=== PATIENT | female | born 1945 ===

== ENCOUNTER → 2018-12-11 | Outpatient (CLI) | payer OTHER, BC ==
[~2018-12-11] VITALS: Ht 165.1 cm; Wt 58.1 kg
[~2018-12-11] MED LIST: ASPIR 8181 MG PO; ATENOLOL 25 MG25 M1 PO; NORVASC2.5 MG PO; SYNTHROID25 MC1 PO; ULTRACET TABLET1 TAB PO; VASOTEC10 MG PO
--- NOTE | ~2018-12-11 | HPC ---
[facility] [address] [place] [address] PAIN MANAGEMENT CONSULTATION Name: CATE TRONCOSO Room #: REG KIMMY Freeman.#: [id number] Admission: 12/11/18 ������������������ Attend Phys: Joseph Medina MD Discharge: ������������������ Date of : 41 Report #: [id number] THIS REPORT FOR: //name// CC: [facility] physician/PCP FRANCINE Medina DATE OF SERVICE: 12/11/2018 CHIEF COMPLAINT: Low back pain with radiation into the left leg following an L4 distribution. The patient is a 73-year-old who has had longstanding back pain. Over the course of last year, the pain is worse and radiating now into her left buttock and into the left anterior thigh. Pain is worsened by prolonged sitting. It is relieved actually by exercise and she uses some tramadol. She describes her pain as continuous. She was unable to give me a pain score. MEDICATIONS: Levothyroxine, enalapril, amlodipine, atenolol, tramadol and baby aspirin. ALLERGIES: None. PAST MEDICAL HISTORY: Anemia, hypertension are listed as well as hypothyroidism. PAST SURGICAL HISTORY: Hysterectomy in October 1982. SOCIAL HISTORY: She is . Her is a patient of ours. She denies use of tobacco. She drinks alcohol in a social setting 2-3 times a week. She and her have sold their home in [place] and have an apartment here, spending part of the year here and a good portion in [place]. She is retired from medical office work. REVIEW OF SYSTEMS: Positive for some fatigue and night sweats, dyspnea on exertion, shortness of breath on occasion. She has occasional constipation and some nocturnal incontinence. She complains of some insomnia. PHYSICAL EXAMINATION: GENERAL: She is a very pleasant, 5 feet 5 inches, 128 pound 73-year-old. Her BMI is 21. VITAL SIGNS: Her blood pressure is 132/68, heart rate 70, respirations 14. CHEST: Clear. CARDIAC: Rhythm regular. MUSCULOSKELETAL: She moves easily from sitting to standing position. Her gait is normal without any antalgic features. Examination of the spine reveals [facility] [address] [place] [address] PAIN MANAGEMENT CONSULTATION Name: NATHALIE TRONCOSON Room #: REG LORRAINEAdria Hernandez#: [id number] Admission: 12/11/18 ������������������ Attend Phys: Joseph Medina MD Discharge: ������������������ Date of : 41 Report #: [id number] normal alignment with good range of motion. She has localized tenderness in the left buttock. Straight leg raising reproduces some pain and stretching, discomfort in the left hip and both the sitting and supine position. Deep tendon reflexes are 2+ knee and ankle bilaterally. Sensation and strength are normal. An MRI is reviewed of the lumbar spine as well as a hip x-ray. The hip shows degenerative changes with chondral thinning. No avascular necrosis or joint effusion. There are some moderate cysts within the superior acetabulum. MRI of the hip was reviewed as well as the report. There is a fairly prominent degenerative disk at L4-L5, which creates bilateral neural foraminal narrowing. There was a small spherical cyst-like structure; however, this appeared to be more medial and anterior than the typical synovial cyst. This cyst appears to create some additional left lateral recess narrowing and could be the underlying cause of her ongoing pain. IMPRESSION: I believe this is an L4 radiculopathy based upon the degenerative disk at L4-L5 and the cyst-like structure in the lateral recess. I have recommended a lumbar epidural steroid injection and we will try to follow up on her MRI imaging to see if the radiologist will comment. DESCRIPTION OF PROCEDURE: The patient was taken to fluoroscopic suite, placed prone, skin prepped with ChloraPrep. Skin anesthetized over the L4-L5 interspace. With some effort, I tried to identify the ligamentum flavum and epidural space at the left L4-L5 level. I was unable to enter the epidural space. The needle was withdrawn and I performed the injection at L5-S1 using loss of resistance technique. No blood or CSF was aspirated. Omnipaque 1 mL was injected with excellent spread along the lateral recess and into the epidural space. It was then followed by 5 mL of 0.5% lidocaine mixed with 80 mg of triamcinolone. She tolerated the procedure well. Pain score was 0 at discharge and a followup visit is planned as needed. ��������������������������������������������� ���������������������������������������� By: ��������������������������������������������� [id number] [id number] Joseph Medina MD /nt
[2018-12-11 14:55] VITALS: BP 132/68
--- NOTE | 2018-12-11 15:41 | NUR ---
Pain Clinic Assessment: 1. History of Osteoarthritis: History of Rheumatoid Arthritis: 2. Height: 5 ft. 5 in. 165.1 cm. Weight: 128.0 lb. oz. 58.060 kg. Patient's BMI: 21.3 3. Vital Signs: BP: 132/68 Pulse: 70 Resp: 14 Temp: 02 Sat: 100 ECG Mon: 4. Pain Intensity: 5. Fall Risk: Dizziness: N Needs help standing or walking: N Fallen in the last 3 months: N Fall risk comments: 6. Patient on Blood Thinner: None 7. History of Hypertension: Y 8. Opioid Therapy greater than 6 weeks: Opiate Contract Signed: 9. Risk Assessment Tool Provided: 10. Functional Assessment Tool: 11. Recreational Drug Use: Never Drug Type: Tobacco Use: Never Smoker Tobacco Type: Amount or Packs/day: How Many Years: Alcohol Use: Yes Frequency: Weekly Quant: 2-3/WEEK
== END | disposition home or self-care (01) ==
LOC: PAIN 06:49
DX: M51.16 Intervertebral disc disorders with radiculopathy, lumbar region (principal); D64.9 Anemia, unspecified; I10 Essential (primary) hypertension; E03.9 Hypothyroidism, unspecified; Z98.890 Other specified postprocedural states; Z79.899 Other long term (current) drug therapy; Z79.82 Long term (current) use of aspirin

== ENCOUNTER → 2019-04-02 | Outpatient (CLI) | payer OTHER, BC ==
[~2019-04-02] VITALS: Ht 165.1 cm; Wt 58.1 kg
[~2019-04-02] MED LIST changes: +VITAMIN B122500 MCG PO
--- NOTE | ~2019-04-02 | HPC ---
[facility] [place] [address] [place] [address] PAIN MANAGEMENT CONSULTATION Name: NATHALIE TRONCOSON Room #: REG KIMMY Freeman.#: [id number] Admission: 04/02/19 ������������������ Attend Phys: Joseph Medina MD Discharge: ������������������ Date of : 41 Report #: [id number] THIS REPORT FOR: //name// CC: Vaughn Urban [facility] physician/PCP Joseph Medina DATE OF SERVICE: 04/02/2019 Followup visit for low back pain with radiculopathy. The patient returns to the Pain Clinic today for a repeat epidural injection. Her last epidural injection was performed at the level of L5-S1. She reported some decent relief. Duration of response was 1-2 months. She and her plan to return to their home in [place] in the next month or two. She is here today for further treatment. She describes her pain today as a 9/10 when severe, today as a 6/10. Pain radiates through the left leg in a radicular distribution. PHYSICAL EXAMINATION: She is 5 feet 5 inches, 128 pounds, blood pressure 154/64, heart rate 58, respirations 16. She moves independently from sitting to standing position and does not show any evidence of a fall risk. There is modest pain across the low back and positive straight leg raising bilaterally, worse on the left. She has some right-sided pain as well. X-rays have shown degenerative disk at L4-L5 and the cyst-like structure in the lateral recess. PLAN: Repeat lumbar epidural injection. I told her that I would try again today to enter through the L4-L5 interspace to the left of midline. PROCEDURE: Epidural steroid injection under fluoroscopic guidance. DESCRIPTION OF PROCEDURE: She was taken to fluoroscopic suite for treatment, placed prone, skin prepped with ChloraPrep. Skin anesthetized over the L4-L5 interspace. A 20-gauge Tuohy epidural needle advanced first attempt in the epidural space with loss of resistance technique. There was no blood or CSF aspirated. A 1 mL of Omnipaque injected. Good spread of dye observed into the epidural space. It was then followed by 3 mL of 0.5% lidocaine mixed with 80 mg of triamcinolone. She tolerated the procedure well and was observed for 45 minutes and discharged. [address] [address] PAIN MANAGEMENT CONSULTATION Name: CATE TRONCOSO Room #: REG [facility].#: [id number] Admission: 04/02/19 ������������������ Attend Phys: Joseph Medina MD Discharge: ������������������ Date of : 41 Report #: [id number] Followup visit planned as needed. ��������������������������������������������� ���������������������������������������� By: ��������������������������������������������� [id number] Joseph Medina MD /nt
[2019-04-02 09:23] VITALS: BP 154/64
--- NOTE | 2019-04-02 09:25 | NUR ---
Pain Clinic Assessment: 1. History of Osteoarthritis: NONE History of Rheumatoid Arthritis: NONE 2. Height: 5 ft. 5 in. 165.1 cm. Weight: 128.0 lb. oz. 58.060 kg. Patient's BMI: 21.3 3. Vital Signs: BP: 154/64 Pulse: 58 Resp: 16 Temp: 02 Sat: 98 ECG Mon: 4. Pain Intensity: 9-WHEN BAD, 6-TODAY 5. Fall Risk: Dizziness: N Needs help standing or walking: N Fallen in the last 3 months: N Fall risk comments: 6. Patient on Blood Thinner: None 7. History of Hypertension: Y 8. Opioid Therapy greater than 6 weeks: Opiate Contract Signed: 9. Risk Assessment Tool Provided: LOW 10. Functional Assessment Tool: 11. Recreational Drug Use: Never Drug Type: Tobacco Use: Never Smoker Tobacco Type: Amount or Packs/day: How Many Years: Alcohol Use: Yes Frequency: Monthly Quant: 3-4 TIMES A MONTH
== END | disposition home or self-care (01) ==
LOC: PAIN 06:48
DX: M54.16 Radiculopathy, lumbar region (principal); M54.5 Low back pain; Z98.890 Other specified postprocedural states; Z79.899 Other long term (current) drug therapy

== ENCOUNTER → 2019-04-26 | Outpatient (CLI) | payer OTHER, BC ==
[~2019-04-26] VITALS: Ht 165.1 cm; Wt 58.4 kg
--- NOTE | ~2019-04-26 | HPC ---
[facility] [place] [address] PAIN MANAGEMENT CONSULTATION Name: CATE TRONCOSO Room #: REG KIMMY Freeman.#: [id number] Admission: 04/26/19 Attend Phys: Joseph Medina MD Discharge: Date of : 41 Report #: [id number] THIS REPORT FOR: //name// CC: [facility] physician/PCP Aleja Medina DATE OF SERVICE: 04/26/2019 Followup visit for lumbar radiculopathy. The patient returns to pain clinic today for a repeat injection. She has had 2 prior injections, the first very successful for about a month and a half. The second one not so helpful with dexamethasone. Given her difference in response to the 2 different medications, I have suggested that we repeat the injection 1 more time before she leaves for [place]. She can continue to remain active. Exercise is important in the treatment of this condition. PQRS REVIEW: 1. History of osteoarthritis and spondylosis of the lumbar spine. There is also degenerative disk disease and cyst-like structure in the lateral recess. 2. 5 feet 5 inches, 128 pounds, BMI of 21.4. 3. Vital signs: Blood pressure 130/56, heart rate 52, respirations 16, O2 sat 100. 4. Pain intensity 5/10. 5. She is not a fall risk. 6. No blood thinners. 7. History of hypertension, treated by Dr. Urban. All medications reviewed and reconciled. She is currently taking aspirin, tramadol, atenolol, amlodipine, enalapril and levothyroxine. 8. She is on no opioid medications and does not wish to take them at this time. 9. Risk assessment score is low on the ORT under 3. 10. Functional assessment score also suggests good management of chronic pain with a score of 14/70. 11. She denies use of tobacco, drinks alcohol in a social setting. PHYSICAL EXAMINATION: She moves independently from sitting to standing position. She ambulates without antalgic features. Examination of the spine reveals some tenderness across the lumbosacral segment. Pain with flexion and extension, both reproduce some mild pain. She complains of clicking sensation of her left hip, but rotational movements of the hip performed do not elicit crepitus. She has tenderness in the gluteal muscles. MRI is reviewed, which shows evidence of multi-degenerative spondylosis, canal stenosis, moderate bilateral foraminal narrowing at L4-L5. [address] [address] PAIN MANAGEMENT CONSULTATION Name: CATE TRONCOSO Room #: REG CLI Linda#: [id number] Admission: 04/26/19 Attend Phys: Joseph Medina MD Discharge: Date of : 41 Report #: [id number] She also has an MRI of the hip, which I reviewed today from 2018. It shows degenerative changes with chondral thinning and a cyst in the superior acetabulum. There is evidence for tendinosis and tendinitis at the gluteus minimus insertion on the greater trochanter. IMPRESSION: I think she has more than 1 pain generator here, including both some lumbar radiculopathy as well as arthropathy of the left hip. We discussed management of this with exercise, ongoing therapy and nonsteroidal anti-inflammatory trial, which I discussed at great length, including potential risks and benefits. Risks include GI, renal and cardiac and effects on hypertension. PROCEDURE: Epidural steroid injection, L5-S1, under fluoroscopic guidance, left paramedian. DESCRIPTION OF PROCEDURE: The patient was taken to fluoroscopic suite, placed prone, skin prepped with ChloraPrep. Skin anesthetized over the L5-S1 interspace. A 20-gauge Tuohy epidural needle was advanced on first attempt in the epidural space with loss of resistance. There was no blood nor CSF aspirated. A 1 mL of Omnipaque was injected and excellent epidurogram was achieved. It was then followed by 3 mL of 0.5% lidocaine with 80 mg of triamcinolone. She tolerated the procedure well. She was observed for 45 minutes. Pain score was 2 at discharge. Follow up as needed after they return from [place]. By: [id number] Joseph Medina MD /nt
[2019-04-26 10:18] VITALS: BP 130/56
--- NOTE | 2019-04-26 10:27 | NUR ---
Pain Clinic Assessment: 1. History of Osteoarthritis: BACK History of Rheumatoid Arthritis: NONE 2. Height: 5 ft. 5 in. 165.1 cm. Weight: 128.8 lb. oz. 58.423 kg. Patient's BMI: 21.4 3. Vital Signs: BP: 130/56 Pulse: 52 Resp: 16 Temp: 02 Sat: 100 ECG Mon: 4. Pain Intensity: 5 5. Fall Risk: Dizziness: N Needs help standing or walking: N Fallen in the last 3 months: N Fall risk comments: 6. Patient on Blood Thinner: None 7. History of Hypertension: Y 8. Opioid Therapy greater than 6 weeks: N Opiate Contract Signed: 9. Risk Assessment Tool Provided: LOW 10. Functional Assessment Tool: 11. Recreational Drug Use: Never Drug Type: Tobacco Use: Never Smoker Tobacco Type: Amount or Packs/day: How Many Years: Alcohol Use: Yes Frequency: Quant:
== END | disposition home or self-care (01) ==
LOC: PAIN 06:55
DX: M54.16 Radiculopathy, lumbar region (principal); M48.061 Spinal stenosis, lumbar region without neurogenic claudication; G89.29 Other chronic pain; Z98.890 Other specified postprocedural states; I10 Essential (primary) hypertension; Z79.82 Long term (current) use of aspirin; Z79.899 Other long term (current) drug therapy

== ENCOUNTER → 2020-04-17 | Outpatient (CLI) | payer OTHER, BC ==
[~2020-04-17] VITALS: Ht 165.1 cm; Wt 56.8 kg
[~2020-04-17] MED LIST changes: +BENADRYL ALLERG25 MG PO; +BENADRYL25 MG PO; +LIPITOR10 MG PO
--- NOTE | ~2020-04-17 | HPC ---
[facility] [address] PAIN MANAGEMENT CONSULTATION Name: CATE TRONCOSO Room #: YOUNG DesaiTeresitaLinda.#: [id number] Admission: 04/17/20 Attend Phys: Joseph Medina MD Discharge: Date of : 41 Report #: [id number] CC: Shanti Medina DATE OF SERVICE: 04/17/2020 Followup visit for lumbar radiculopathy secondary to spinal stenosis. The patient returns to pain clinic today for a repeat epidural injection. She has had an unfavorable response to injections. Pain is mostly at the level of L4-L5 where she has mild bilateral foraminal narrowing and she also has central canal narrowing at L2-L3 and L3-L4. Pain is bilateral, perhaps worse on the left than the right. PQRS: Positive for some right shoulder pain secondary to dislocation, which is not showing signs of arthropathy. She has some spondylosis of the spine. BMI is 20.8, blood pressure 130/56, heart rate 58, respirations 14, O2 sat 100, pain intensity 5. She has not fallen. She is on no blood thinners, but is treated for hypertension by her primary care physician. She does not take opioids. Her opioid risk tool assessment is low. Functional assessment score 31. She denies tobacco, drinks alcohol socially 1 glass of wine on special occasions. IMPRESSION: Lumbar radiculopathy. RECOMMENDATION: Repeat epidural injection L4-L5 under fluoroscopic guidance. DESCRIPTION OF PROCEDURE: After informed consent, she was taken to the fluoroscopic suite, placed prone, skin prepped with ChloraPrep. Skin anesthetized over the L4-L5 interspace. A 20-gauge Tuohy epidural needle advanced in the epidural space with loss of resistance. There was no blood or CSF aspirated. A 1 mL of Omnipaque injected with good spread of dye observed within the epidural space followed by 3 mL of 0.5% lidocaine mixed with 80 mg of triamcinolone. She tolerated the procedure well and was observed for 45 minutes and discharged. Follow up as needed. By: [id number] Joseph Medina MD /nt
[2020-04-17 13:10] VITALS: BP 130/56
--- NOTE | 2020-04-17 13:41 | NUR ---
Pain Clinic Assessment: 1. History of Osteoarthritis: BACK History of Rheumatoid Arthritis: NONE 2. Height: 5 ft. 5 in. 165.1 cm. Weight: 125.2 lb. oz. 56.790 kg. Patient's BMI: 20.8 3. Vital Signs: BP: 130/56 Pulse: 58 Resp: 14 Temp: 02 Sat: 100 ECG Mon: 4. Pain Intensity: 5 5. Fall Risk: Dizziness: N Needs help standing or walking: N Fallen in the last 3 months: N Fall risk comments: 6. Patient on Blood Thinner: None 7. History of Hypertension: Y 8. Opioid Therapy greater than 6 weeks: N Opiate Contract Signed: 9. Risk Assessment Tool Provided: LOW 10. Functional Assessment Tool: 11. Recreational Drug Use: Never Drug Type: Tobacco Use: Never Smoker Tobacco Type: Amount or Packs/day: How Many Years: Alcohol Use: Yes Frequency: Special Occasions Quant: 1 GLASS/WINE
== END ==
LOC: PAIN 06:58
PROVIDERS: ATTEND Anesthesiology Pain Medicine
DX: M54.16 Radiculopathy, lumbar region (principal); M48.061 Spinal stenosis, lumbar region without neurogenic claudication; M19.90 Unspecified osteoarthritis, unspecified site; Z72.89 Other problems related to lifestyle; Z79.899 Other long term (current) drug therapy